=== PATIENT | female | born 2000 | race Two or more races ===

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

== ENCOUNTER 2019-03-24 15:30 | Emergency (ER) | payer OTHER ==
[2019-03-24 15:48] VITALS: BP 110/65
== END 2019-03-24 17:00 | disposition left against medical advice (07) ==
LOC: ER 15:30
DX: Z53.21 Procedure and treatment not carried out due to patient leaving prior to being seen by health care provider (principal)

== ENCOUNTER 2019-05-03 12:01 | Emergency (ER) | payer OTHER ==
--- NOTE | 2019-05-03 12:24 | ER Document Report ---
ED Medical Screen (RME) - General Chief Complaint: Abscess Stated Complaint: POSSIBLE ABSCESS Time Seen by Provider: 05/03/19 12:14 Primary Care Provider: NIRMALA FINCH MD [Primary Care Provider] - Follow up as needed TRAVEL OUTSIDE OF THE [place] IN LAST 30 DAYS: No - HPI Notes: 05/03/19 12:21 Patient is a 18-year-old female who presents complaining of possible abscess right inguinal area. Patient states that is been flareup for the past 3 months on and off and has been on antibiotics previously for it by her family doctor. Patient states that she does shave in this area. She has not noticed any discharge. No fever. I have treated and performed a rapid initial assessment of this patient. A comprehensive ED assessment and evaluation of the patient, analysis of test results and completion of medical decision making process will be conducted by additional ED providers. PHYSICAL EXAMINATION: GENERAL: Well-appearing, well-nourished and in no acute distress. A&Ox4. Answers questions appropriately. Skin (etelvina post present): small papular lump noted rt inguinal. No significant erythema. no discharge. - Related Data Allergies/Adverse Reactions: loratadine [From Claritin] Adverse Reaction (Mild, Verified 05/03/19 12:14) Vomiting Past Medical History - Social History Chew tobacco use (# tins/day): No Frequency of alcohol use: None Renal/ Medical History: Denies: Hx Peritoneal Dialysis - Immunizations Immunizations up to date: Yes Hx Diphtheria, Pertussis, Tetanus Vaccination: Yes History of Influenza Vaccine for 05/2017 - 10/2017 Season: No Physical Exam - Vital signs Vitals: Temp Pulse Resp BP Pulse Ox 97.6 F 55 L 18 104/60 100 05/03/19 12:07 05/03/19 12:07 05/03/19 12:07 05/03/19 12:07 05/03/19 12:07 Course - Vital Signs Vital signs: Temp Pulse Resp BP Pulse Ox 97.6 F 55 L 18 104/60 100 05/03/19 12:07 05/03/19 12:07 05/03/19 12:07 05/03/19 12:07 05/03/19 12:07 Doctor's Discharge - Discharge Referrals: NIRMALA FINCH MD [Primary Care Provider] - Follow up as needed
--- NOTE | 2019-05-03 13:44 | ER Document Report ---
HPI - HPI Patient complains to provider of: Abscess to right groin Time Seen by Provider: 05/03/19 12:14 Pain Level: 2 Context: Patient with tender lesion to right inguinal area for the past 3 months. Patient states that she will pick at and squeezed the lesion and sometimes get drainage. Patient has been on antibiotics twice this month already for this issue. Patient has an upcoming appointment with gynecology but it is not for some time still. Patient complains of pain that prevents her from wearing underwear. Associated Symptoms: denies: Fever Exacerbated by: Movement Relieved by: Denies Similar symptoms previously: Yes Recently seen / treated by doctor: No - ROS ROS below otherwise negative: Yes Systems Reviewed and Negative: Yes All other systems reviewed and negative - CONSTITUTIONAL Constitutional: DENIES: Fever, Chills - REPRODUCTIVE Reproductive: DENIES: : - DERM Skin Problems: Cyst Past Medical History - General Information source: Patient - Social History Smoking Status: Never Smoker Chew tobacco use (# tins/day): No Frequency of alcohol use: None Drug Abuse: None Lives with: Family Family History: Malignancy, Hyperlipidemia, Hypertension, Reviewed & Not Pertinent Patient has suicidal ideation: No Patient has homicidal ideation: No - Medical History Medical History: Negative Renal/ Medical History: Denies: Hx Peritoneal Dialysis Surgical Hx: Negative - Immunizations Immunizations up to date: Yes Hx Diphtheria, Pertussis, Tetanus Vaccination: Yes Vertical Provider Document - CONSTITUTIONAL Agree With Documented VS: Yes Exam Limitations: No Limitations General Appearance: WD/WN, No Apparent Distress - INFECTION CONTROL TRAVEL OUTSIDE OF THE [place] IN LAST 30 DAYS: No - HEENT HEENT: Atraumatic, Normocephalic - NECK Neck: Lymphadenopathy-Right - RESPIRATORY Respiratory: No Respiratory Distress - MUSCULOSKELETAL/EXTREMETIES Musculoskeletal/Extremeties: MAEW - NEURO Level of Consciousness: Awake, Alert, Appropriate Motor/Sensory: No Motor Deficit - DERM Integumentary: Warm, Dry. negative: Abscess Notes: Patient with 0.5 cm tender mobile lesion to the right inguinal area. No overlying erythema, no concern for abscess. Lesion not able to be visualized until palpated Course - Re-evaluation Re-evalutation: 05/03/19 13:42 No signs of inflammation, no concern for drainable abscess at this time. Patient with tender nodular lesion to the right groin area. Patient encouraged to stop traumatizing the lesion by picking and squeezing at it. Patient encouraged to keep appointment with aquaculture director. - Vital Signs Vital signs: Temp Pulse Resp BP Pulse Ox 97.6 F 55 L 18 104/60 100 05/03/19 12:07 05/03/19 12:07 05/03/19 12:07 05/03/19 12:05/03/19 12:07 Discharge - Discharge Clinical Impression: Skin nodule Condition: Stable Disposition: HOME, SELF-CARE Additional Instructions: Return immediately for any new or worsening symptoms Followup with your primary care provider, call tomorrow to make a followup appointment Pad area around skin lesion to prevent underwear from rubbing on it Do not pick at or squeeze lesion Follow-up with aquaculture director as planned Prescriptions: Naproxen [Naprosyn 250 Nmg Tablet] 1 tab PO BID #14 tablet Referrals: NIRMALA FINCH MD [Primary Care Provider] - Follow up as needed
[2019-05-03 14:06] VITALS: BP 121/62
== END 2019-05-03 14:03 | disposition home or self-care (01) ==
LOC: ER 12:01
DX: R22.2 Localized swelling, mass and lump, trunk (principal); L02.214 Cutaneous abscess of groin
CPT/HCPCS: 99283